=== PATIENT | female | born 1985 | race Caucasian/White ===

== ENCOUNTER 2017-10-22 19:36 | Emergency (ER) | payer OTHER ==
[~2017-10-22] VITALS: Ht 160 cm; Wt 110.3 kg
[~2017-10-22 19:36] MED LIST: ONDA4TAB35 PO; PANT40TA3 PO
[2017-10-22 19:43] VITALS: Ht 160 cm; Wt 110.3 kg
[2017-10-22] MEDS ORDERED: ACETAMINOPHEN 325 MG TAB PO STA (21:19)
[2017-10-22 22:03] LABS: URINE BLOOD (Dip) POC Negative (NEGATIVE)
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
--- NOTE | 2017-10-22 22:28 | RADRPT ---
PROCEDURE: XR Hand. CLINICAL INDICATION: Right hand pain. TECHNIQUE: Three views of the right hand were obtained. COMPARISON: No prior studies are available for comparison. FINDINGS: The bones of the hand appear intact, with no evidence of fracture, dislocation, or subluxation. The joint spaces are preserved. Bone mineralization is normal. No significant soft tissue swelling is se en. There is a marker pointing towards the right fourth digit. No fracture or other abnormality of t he right fourth digit is seen. IMPRESSION: 1. Unremarkable right hand x-ray series. 2. No acute fracture or dislocation is seen. RPTAT: PP .Raul Sow MD, MD Date Time Electronically viewed and signed by .Raul Sow MD, MD on 10/22/2017 22:28 .B/
[2017-10-22] MEDS ORDERED: ACET-2047 PO (22:38)
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
== END 2017-10-22 23:23 | disposition home or self-care (01) ==
LOC: FTE 19:36
DX: S00.12XA Contusion of left eyelid and periocular area, initial encounter (principal); S69.91XA Unspecified injury of right wrist, hand and finger(s), initial encounter; F17.210 Nicotine dependence, cigarettes, uncomplicated; Y08.89XA Assault by other specified means, initial encounter
CPT/HCPCS: 70480; 73130; 81003; Z7502; Z7610